=== PATIENT | female | born 1945 | race Caucasian/White ===

== ENCOUNTER 2018-02-17 16:08 | Inpatient (IN) ==
[2018-02-17] MEDS ORDERED: LACTATED RINGERS 1,000 ML IV ONE (17:04)
[2018-02-17 17:18] LABS: Basophils # 0.1 10*3/uL (0.0-0.2); Basophils % 0.8 % (0.0-0.8); Eosinophils # 0.2 10*3/uL (0.0-0.87); Eosinophils % 1.7 % (0.00-10.9); Hematocrit 41.3 VOL% (35.7-47.0); Hemoglobin 13.1 GM/DL (12.0-16.0); Immature Granulocytes % 0.8 %; Immature Granulocytes Absolute 0.07 #; Lymphocytes # 2.4 10*3/uL (1.4-4.0); Mean Corpuscular HGB Conc 31.7 GM/DL (32-36); Mean Corpuscular Hemoglobin 25 PG (27-34); Mean Corpuscular Volume 79.9 FL (87-102); Mean Platelet Volume 10.4 FL (9.6-12.0); Monocytes # 0.5 10*3/uL (0.11-0.8); Monocytes % 6.2 % (1.7-12.7); Neutrophils # 5.5 10*3/uL (1.4-7.4); Neutrophils % 62.5 % (38.7-73.9); Platelet Count 270 T/CUMM (130-400); Red Blood Count 5.17 MC/CUMM (3.8-5.5); Red Cell Distribution Width 13.5 % (9.3-17.3); White Blood Count 8.7 T/CUMM (4-12)
[2018-02-17 17:37] LABS: Alanine Aminotransferase 22 U/L (13-56); Albumin 3.7 G/DL (3.4-5.0); Alkaline Phosphatase 96 U/L (45-117); Aspartate Amino Transferase 15 U/L (0-37); Bilirubin,Total < 0.39 MG/DL (0.2-1.0); Blood Urea Nitrogen 17 MG/DL (7-18); Calcium 8.8 MG/DL (8.5-10.1); Glucose 177 MG/DL (74-106); Osmolality,Calculated 278.8 MOS/KG (273-304); Potassium 3.4 MMOL/L (3.5-5.1); Sodium 137 MMOL/L (136-145); Total Protein 7.2 G/DL (6.4-8.3)
[2018-02-17 17:42] LABS: Apearance,Urine CLEAR (Clear); Bilirubin,Urine Negative (Negative); Blood, Urine Negative (Negative); Glucose,Urine (UA) Negative (Negative); Ketones,Urine Negative (Negative); Mucus,Urine Occasional /LPF (Occasional); Nitrite,Urine Negative (Negative); Protein,Urine Negative; RBC,Urine <1 /HPF (0-4); Urine Color Straw (Yellow); Urine Specific Gravity 1.008 (1.001-1.035); Urine Urobilinogen < 2.0 EU/DL (0.2-1.0); WBC,Urine <1 /HPF (0-6)
[2018-02-17] MEDS ORDERED: ONDANSETRON 4 MG/2 ML VIAL IV PRN (20:10)
[2018-02-17] MEDS ORDERED: DEXTROSE 50% 25 GM/50 ML VIAL IV PRN (20:51)
[2018-02-17] MEDS ORDERED: MAGNESIUM SULF RIDER 2 GM in PREMIX 1 EACH IV PRN (20:51)
[2018-02-17] MEDS ORDERED: MORPHINE 4 MG/1 ML VIAL IV PRN (20:51)
[2018-02-17] MEDS ORDERED: MAGNESIUM SULF RIDER 4 GM in PREMIX 1 EACH IV PRN (20:51)
[2018-02-17] MEDS ORDERED: GLUCAGON 1 MG VIAL IM PRN (20:51)
[2018-02-17] MEDS ORDERED: ZALEPLON 5 MG CAPSULE PO PRN (20:51)
[2018-02-17] MEDS ORDERED: POTASSIUM CHLORIDE 20 MEQ TABLET PO PRN (20:51)
[2018-02-17] MEDS ORDERED: NITROGLYCERIN SL 0.4 MG TABLET SL PRN (20:55)
[2018-02-17] MEDS: SODIUM CHLORIDE 0.45% 1,000 ML IV SCH (21:50)
[2018-02-17] MEDS: ASPIRIN EC 325 MG TABLET PO SCH (21:50)
[2018-02-17] MEDS: ENOXAPARIN 40 MG/0.4 ML SYRINGE SUBCUT SCH (21:51)
[2018-02-17] MEDS: INSULIN LISPRO 100 UNIT/ML SUBCUT SCH (21:52)
[2018-02-18] MEDS ORDERED: LACTATED RINGERS 1,000 ML IV SCH
[2018-02-18 04:33] LABS: Risk Ratio 4.83; VLDL CHOLESTEROL 33.4 MG/DL
[2018-02-18] MEDS: INSULIN LISPRO 100 UNIT/ML SUBCUT SCH ×4 (08:41→20:36)
[2018-02-18] MEDS ORDERED: sitaGLIPtin 100 MG TABLET PO SCH (09:00)
[2018-02-18] MEDS ORDERED: LISINOPRIL 5 MG TABLET PO SCH (09:00)
[2018-02-18] MEDS: LISINOPRIL/HCTZ 10-12.5 MG TABLET PO SCH (10:43)
[2018-02-18] MEDS: PANTOPRAZOLE 40 MG TABLET PO SCH (10:43)
[2018-02-18] MEDS: sitaGLIPtin 25 MG TABLET PO SCH (10:43)
[2018-02-18] MEDS: POTASSIUM CHLORIDE 20 MEQ TABLET PO SCH (10:43)
[2018-02-18] MEDS: SODIUM CHLORIDE 0.45% 1,000 ML IV SCH (16:03)
[2018-02-18] MEDS: ENOXAPARIN 40 MG/0.4 ML SYRINGE SUBCUT SCH (20:37)
[2018-02-18] MEDS: ASPIRIN EC 325 MG TABLET PO SCH (20:37)
[2018-02-19] MEDS: INSULIN LISPRO 100 UNIT/ML SUBCUT SCH ×3 (08:10→15:40)
[2018-02-19] MEDS: sitaGLIPtin 25 MG TABLET PO SCH (08:42)
[2018-02-19] MEDS: POTASSIUM CHLORIDE 20 MEQ TABLET PO SCH (08:42)
[2018-02-19] MEDS: LISINOPRIL/HCTZ 10-12.5 MG TABLET PO SCH (08:42)
[2018-02-19] MEDS: PANTOPRAZOLE 40 MG TABLET PO SCH (08:42)
[2018-02-19] MEDS: SODIUM CHLORIDE 0.45% 1,000 ML IV SCH (13:22)
[2018-02-19 15:59] VITALS: BP 133/80
== END 2018-02-19 18:53 | disposition home or self-care (01) | DRG 312 ==
LOC: EDUNIT# → EDBD → N.ED 16:08 → N.EDINP 18:24 → N.TELEN 19:13
PROVIDERS: ADMIT Internal Medicine; ATTEND Internal Medicine